=== PATIENT | female | born 1990 | race African-American/Black ===

== ENCOUNTER 2024-10-16 00:28 | Emergency (ER) | payer MEDICAID, OTHER ==
[~2024-10-16] VITALS: Ht 170.2 cm; Wt 104.0 kg
[2024-10-16 00:38] VITALS: BP 150/89; PULSE 99; RESP 18; TEMP 37.3; O2SAT 100
[2024-10-16] MEDS ORDERED: SODIUM CHLORIDE 0.9% 1,000 ML IV ONE (01:30)
[2024-10-16] MEDS ORDERED: LORAZEPAM 2MG/ML INJ IM ONE (02:00)
[2024-10-16] MEDS: HALOPERIDOL LACTATE 5MG/ML VIAL IM ONE (02:47)
[2024-10-16] MEDS: LORAZEPAM 2MG/ML UD SYRINGE IM NR (02:48)
== END 2024-10-16 03:00 | disposition left against medical advice (07) ==
LOC: ER 00:37
DX: R41.82 Altered mental status, unspecified (principal); F10.129 Alcohol abuse with intoxication, unspecified; R10.9 Unspecified abdominal pain; Y90.9 Presence of alcohol in blood, level not specified
CPT/HCPCS: 99284; 96372; J1630; J2060; J7030